=== PATIENT | female | born 1980 | race African-American/Black ===

== ENCOUNTER 2021-07-21 03:22 | Emergency (ER) | payer OTHER, MEDICAID, SELFPAY ==
[2021-07-21 03:39] VITALS: BP 158/78; PULSE 99; RESP 17; TEMP 36.6; O2SAT 98; BMI 31.0
--- NOTE | 2021-07-21 03:46 | DI.RAD.S_ITS ---
PROCEDURE: XR CHEST 2V INDICATIONS: Short of breath, chest pain TECHNIQUE: 2 views of the chest were acquired. COMPARISON: None. FINDINGS: Surgical changes and devices: None. Lungs and pleura: An incomplete inspiratory result is noted, causing a crowded appearance to the lung markings. No pneumothorax or significant pleural effusions are seen. Within the right lung base, poorly defined opacity can be seen on the frontal view. Mediastinum: Mediastinal contours are normal. Heart size is normal. Bones and chest wall: No suspicious bony abnormalities. Soft tissues appear unremarkable. IMPRESSION: There is a mild amount of opacity seen within the right lung base, which may represent early infiltrate. Differential diagnosis includes atelectasis or artifact in this patient with an incomplete inspiratory result. If clinically appropriate, a short-term followup chest series (with PA and lateral views) performed in deep inspiration is suggested for further evaluation. Note: No significant discrepancy from the preliminary report. Dictated by: Nigel Dykes M.D. on 07/21/2021 at 7:02 Approved by: Nigel Dykes M.D. on 07/21/2021 at 7:04
--- NOTE | 2021-07-21 03:49 | ED.CHESTPAIN ---
HPI - Chest Pain General Chief Complaint: Chest Pain Stated Complaint: SOB Time Seen by Provider: 07/21/21 03:26 Source: patient Mode of arrival: Ambulatory Limitations: no limitations History of Present Illness HPI narrative: 41F nonsmoker presents with 2 or 3 days of a sharp and stabbing mid chest pain that seems to be worse when she coughs. She has had some nasal congestion and fullness in her bilateral ears. She denies fever or chills. She has had no nausea or vomiting. She denies any diarrhea or constipation. She has no dysuria, frequency or urgency. She denies vaginal bleeding or discharge but does complain an odd odor. She is very seldom sexually active. Other than deep breath or cough she denies other obvious provocation, palliation or radiation of her chest pain. She denies any exertional component. She is not dizzy nor weak or lightheaded. She denies any recent long distance travel, injury, history of blood clot or cancer nor lower extremity pain or swelling Related Data Previous Rx's Medication Instructions Recorded amoxicillin 875 mg-potassium 1 tab PO Q12H #20 tab 07/21/21 clavulanate 125 mg tablet potassium chloride 20 mEq 20 meq PO BID #10 tab 07/21/21 tablet,extended release Review of Systems Review of Systems Narrative: GENERAL: See HPI HEENT: D see HPI RESPIRATORY see HPI CARDIOVASCULAR: See HPI GASTROINTESTINAL: Denies nausea, vomiting, abdominal pain, diarrhea, constipation, melena. : See HPI MUSCULOSKELETAL: denies weakness, joint pain, or bony pain SKIN: Denies rash, skin lesions, or other NEUROLOGIC: Denies weakness, headache, numbness, change in speech, confusion, seizures, incoordination. PSYCHIATRIC: No concerning psychosocial issues. 12 point review of systems is negative except for those stated above Patient History Social History Smoking Status: Current every day smoker Smoking Status: Current every day smoker Substance Use Type: other Exam Narrative Exam Narrative: GENERAL: [41] year old patient appears stated age. Well-developed patient, in mild distress. HEAD: Atraumatic. Normocephalic. EYES: Pupils equal round and reactive. Extraocular motions intact. No scleral icterus. No injection or drainage. ENT: Nose without bleeding, purulent drainage. Throat without erythema, tonsillar hypertrophy or exudate. Airway patent. NECK: Trachea midline. Non tender CARDIOVASCULAR: Regular rate and rhythm without murmurs, gallops, or rubs. RESPIRATORY: Clear to auscultation. Breath sounds equal bilaterally. No wheezes, rales, or rhonchi. GASTROINTESTINAL: Abdomen soft, non-tender, nondistended. EXTREMITIES: No edema or joint tenderness. BACK: Nontender without deformity or crepitance. No flank tenderness. NEURO: AOx3. SKIN: No rash or erythema of visible areas Initial Vital Signs Initial Vital Signs: Vital Signs Temperature 97.8 F 07/21/21 03:39 Pulse Rate 99 H 07/21/21 03:39 Respiratory Rate 17 07/21/21 03:39 Blood Pressure 158/78 H 07/21/21 03:39 Pulse Oximetry 98 07/21/21 03:39 Course Orders Ordered: ED Orders 07/21/21 03:46 Chest [XR chest 2V] Stat 07/21/21 03:50 C-Reactive Protein Quant Stat Complete Blood Count AUTO DIFF Stat Comprehensive Metabolic Panel Stat D Dimer Stat Erythrocyte Sedimentation Rate Stat Lipase Stat Magnesium Stat NT-proBNP (BNP-Adult 18+) Stat Procalcitonin Stat Troponin & CK Cardiac Panel Stat 07/21/21 04:30 GC Screen Stat 07/21/21 04:50 COVID19 -Nasal RAPID/Pre-Proc Stat Discontinued Medications Sodium Chloride (Normal Saline 0.9%) 500 mls @ 1,000 mls/hr IV BOLUS ONE Stop: 07/21/21 04:12 Last Infusion: 07/21/21 05:13 Dose: 0 mls/hr Documented by: Admin: 07/21/21 04:11 Dose: 1,000 mls/hr Documented by: VANESA Ketorolac Tromethamine (Ketorolac 30 Mg/Ml Vial) 15 mg IV NOW ONE Stop: 07/21/21 03:44 Last Admin: 07/21/21 04:11 Dose: 15 mg Documented by: VANESA Potassium Chloride (Potassium Chloride 20 Meq/15 Ml Udc) 40 meq PO NOW ONE Stop: 07/21/21 04:26 Last Admin: 07/21/21 04:37 Dose: 40 meq Documented by: VANESA Potassium Chloride (Potassium Chloride 20 Meq Tab) 40 meq PO NOW ONE Stop: 07/21/21 04:26 Last Admin: 07/21/21 04:37 Dose: 40 meq Documented by: VANESA Vital Signs Vital signs: Vital Signs - 8 hr 07/21/21 03:39 07/21/21 04:53 07/21/21 04:55 Temperature 97.8 F Pulse Rate 99 H 92 H 88 Respiratory Rate 17 18 13 Blood Pressure 158/78 H 167/74 H Pulse Oximetry 98 07/21/21 05:00 07/21/21 05:20 Temperature Pulse Rate 102 H 85 Respiratory Rate 23 Blood Pressure Pulse Oximetry MDM - Chest Pain Lab Data Result diagrams: 07/21/21 03:50 07/21/21 03:50 Labs: Lab Results 07/21/21 07/21/21 07/21/21 Range/Units 03:50 03:50 03:50 WBC 5.7 (4.5-11.0) X10^3/uL RBC 4.09 (4.0-5.2) X10^6/uL Hgb 8.6 L (12.0-16.0) g/dL Hct 27.7 L (36-46) % MCV 67.8 L (80-100) fL MCH 20.9 L (26-34) PG MCHC 30.8 (30-36) % RDW 18.9 H (11.6-14.8) % Plt Count 340 (150-400) X10^3/uL Neut % (Auto) 46.9 L (50-75) % Lymph % (Auto) 44.4 H (25-40) % [place] % (Auto) 7.0 (3-14) % Eos % (Auto) 1.3 L (2-4) % Baso % (Auto) 0.4 (0-2) % Neut # (Auto) 2700 (8432-9034) /uL Lymph # (Auto) 2500 (1372-5898) /uL [place] # (Auto) 400 (0-900) /uL Eos # (Auto) 100 (0-450) /uL Baso # (Auto) 0 (0-100) /uL RBC Morphology See below Hypochromasia 1+ H Anisocytosis 2+ H ESR 34 H (0-20) MM/HR D-Dimer (<230) ng/mL Sodium 140 (137-145) mmol/L Potassium 2.9 L (3.4-5.1) mmol/L Chloride 105 (98-107) mmol/L Carbon Dioxide 28 (22-32) mmol/L BUN 10 (7-17) mg/dL Creatinine 0.83 (0.52-1.04) mg/dL Estimated GFR > 60 (>60) mL/min BUN/Creatinine Ratio 12.0 (6-22) Glucose 171 H (70-100) mg/dL Calcium 8.5 (8.4-10.2) mg/dL Magnesium 1.8 (1.6-2.3) mg/dL Total Bilirubin 0.2 (0.2-1.3) mg/dL AST 21 (14-36) IU/L ALT 15 (<35) IU/L Alkaline Phosphatase 94 (38-126) U/L Total Creatine Kinase 146 H (30-135) U/L CK-MB (CK-2) 1.05 (<2.37) ng/mL CK-MB (CK-2) Rel Index 0.7 L (1.5-5.0) % Troponin I 0.012 (0.01-0.034) ng/mL C-Reactive Protein < 0.5 (<1.0) mg/dL NT-Pro-B Natriuret Pep 277 H (<125) pg/mL Total Protein 7.6 (6.3-8.2) g/dL Albumin 4.1 (3.5-5.0) g/dL Globulin 3.5 (1.7-4.1) g/dL Albumin/Globulin Ratio 1.2 (1.0-2.8) Lipase 319 H (23-300) U/L Procalcitonin (<0.5) ng/mL SARS-CoV-2 (PCR) (Negative) 07/21/21 07/21/21 07/21/21 Range/Units 03:50 03:50 04:50 WBC (4.5-11.0) X10^3/uL RBC (4.0-5.2) X10^6/uL Hgb (12.0-16.0) g/dL Hct (36-46) % MCV (80-100) fL MCH (26-34) PG MCHC (30-36) % RDW (11.6-14.8) % Plt Count (150-400) X10^3/uL Neut % (Auto) (50-75) % Lymph % (Auto) (25-40) % [place] % (Auto) (3-14) % Eos % (Auto) (2-4) % Baso % (Auto) (0-2) % Neut # (Auto) (1788-3437) /uL Lymph # (Auto) (9050-4879) /uL [place] # (Auto) (0-900) /uL Eos # (Auto) (0-450) /uL Baso # (Auto) (0-100) /uL RBC Morphology Hypochromasia Anisocytosis ESR (0-20) MM/HR D-Dimer < 200 (<230) ng/mL Sodium (137-145) mmol/L Potassium (3.4-5.1) mmol/L Chloride (98-107) mmol/L Carbon Dioxide (22-32) mmol/L BUN (7-17) mg/dL Creatinine (0.52-1.04) mg/dL Estimated GFR (>60) mL/min BUN/Creatinine Ratio (6-22) Glucose (70-100) mg/dL Calcium (8.4-10.2) mg/dL Magnesium (1.6-2.3) mg/dL Total Bilirubin (0.2-1.3) mg/dL AST (14-36) IU/L ALT (<35) IU/L Alkaline Phosphatase (38-126) U/L Total Creatine Kinase (30-135) U/L CK-MB (CK-2) (<2.37) ng/mL CK-MB (CK-2) Rel Index (1.5-5.0) % Troponin I (0.01-0.034) ng/mL C-Reactive Protein (<1.0) mg/dL NT-Pro-B Natriuret Pep (<125) pg/mL Total Protein (6.3-8.2) g/dL Albumin (3.5-5.0) g/dL Globulin (1.7-4.1) g/dL Albumin/Globulin Ratio (1.0-2.8) Lipase (23-300) U/L Procalcitonin 0.03 (<0.5) ng/mL SARS-CoV-2 (PCR) Negative (Negative) Point of Care Testing Test Results Negative Urine Dip Bedside Urine Glucose Negative Bedside Urine Bilirubin - Negative Bedside Urine Ketone - Negative Urine Specific Marks 1.030 Bedside Urine Occult Blood +/- Bedside Urine pH 5.5 Bedside Urine Protein - Negative Bedside Urine Urobilinogen - Negative Bedside Urine Nitrite - Negative Bedside Urine Leukocytes - Negative Esterase Imaging Data Chest x-ray: Radiologist's Impression: Small ill-defined opacity in right base may be pneumonia MDM Narrative Medical decision making narrative: Multiple causes of chest pain considered including [place], PE, pneumothorax, pneumonia, aortic dissection, and pleurisy. Patient reports no radiation, no diaphoresis, no provocation with exertion, and no vomiting Patient's symptoms improved over duration of stay with above-stated therapies. Findings and discharge diagnosis discussed with patient/family followed by verbalization of understanding Return precautions discussed with patient/family whom verbalize understanding. Discharge Plan Departure Patient Disposition: Home Clinical Impression: Atypical chest pain, Pneumonia, Acute hypokalemia Instructions: DI for Pneumonia -- Adult, DI for Atypical Chest Pain Activity Restrictions/Additional Instructions: *You have been diagnosed with [mild pneumonia and atypical chest pain along with low potassium. As we discussed your other labs are very reassuring. There is no evidence of heart attack, blood clot or collapsed lung. Her chest x-ray suggests a small pneumonia. *What to do: *Please continue to take your regular medications as directed. [x ] New medication prescriptions sent to your pharmacy: [ [facility]] [ ] New medication written as a paper prescription [ ] No new medications given *Please follow up with your primary care provider in 2-3 days, call for an appointment. Let them know you were seen in the Emergency Department and that we ask that you be seen in follow up. We will electronically transmit a record of today's note if your PCP is in our system *If you do not have a primary care provider please contact the [facility] Resource line at [phone]. They will ask some questions about your medical history and help get you set up with a doctor in the community. *Return to Emergency Department if you should have any new, worsening or concerning symptoms, such as [fever greater than 101 F, shaking chills, worsening pain, persistent vomiting or other bothersome symptoms] Prescriptions: New amoxicillin-pot clavulanate 875-125 mg tablet 1 tab PO Q12H Qty: 20 0RF potassium chloride 20 mEq tablet extended release 20 meq PO BID Qty: 10 0RF
[2021-07-21 04:02] LABS: Add Manual Diff / Slide Review NO; Basophils Absolute Auto 0 /uL (0-100); Basophils Percent Auto 0.4 % (0-2); Eosinophils Absolute Auto 100 /uL (0-450); Eosinophils Percent Auto 1.3 % (2-4); Hematocrit 27.7 % (36-46); Hemoglobin 8.6 g/dL (12.0-16.0); Lymphocytes Absolute Auto 2500 /uL (1100-4500); Lymphocytes Percent Auto 44.4 % (25-40); Mean Corpuscular HGB Conc 30.8 % (30-36); Mean Corpuscular Hemoglobin 20.9 PG (26-34); Mean Corpuscular Volume 67.8 fL (80-100); Monocytes Absolute Auto 400 /uL (0-900); Neutrophils Absolute Auto 2700 /uL (1500-7000); Neutrophils Percent Auto 46.9 % (50-75); Platelet Count 340 X10^3/uL (150-400); Red Blood Cell Count 4.09 X10^6/uL (4.0-5.2); Red Cell Distribution Width 18.9 % (11.6-14.8); White Blood Cell Count 5.7 X10^3/uL (4.5-11.0)
[2021-07-21] MEDS: SODIUM CHLORIDE 0.9% 500 ML 1000 ML IV (04:11)
[2021-07-21] MEDS: KETOROLAC 30 MG/ML VIAL 15 MG IV (04:11)
[2021-07-21 04:14] LABS: Alanine Aminotransferase 15 IU/L (<35); Albumin 4.1 g/dL (3.5-5.0); Albumin Globulin Ratio 1.2 (1.0-2.8); Alkaline Phosphatase 94 U/L (38-126); Aspartate Aminotransferase 21 IU/L (14-36); Bilirubin Total 0.2 mg/dL (0.2-1.3); Blood Urea Nitrogen 10 mg/dL (7-17); Calcium 8.5 mg/dL (8.4-10.2); Carbon Dioxide 28 mmol/L (22-32); Chloride 105 mmol/L (98-107); Creatine Kinase 146 U/L (30-135); Estimated Glomerular Filt Rate > 60 mL/min (>60); Globulin 3.5 g/dL (1.7-4.1); Glucose 171 mg/dL (70-100); HEMOLYSIS < 15 (0-50); Lipase 319 U/L (23-300); Magnesium 1.8 mg/dL (1.6-2.3); Potassium 2.9 mmol/L (3.4-5.1); Sodium 140 mmol/L (137-145); Total Protein 7.6 g/dL (6.3-8.2)
[2021-07-21 04:18] LABS: C-Reactive Protein Quant < 0.5 mg/dL (<1.0)
[2021-07-21 04:22] LABS: Anisocytosis 2+; Erythrocyte Sedimentation Rate 34 MM/HR (0-20); Hypochromasia 1+
[2021-07-21 04:26] LABS: NT-proBNP (BNP-Adult 18+) 277 pg/mL (<125); Troponin I 0.012 ng/mL (0.01-0.034)
[2021-07-21 04:29] LABS: CKMB % Relative Index 0.7 % (1.5-5.0); Creatine Kinase MB 1.05 ng/mL (<2.37)
[2021-07-21 04:32] LABS: Procalcitonin 0.03 ng/mL (<0.5)
[2021-07-21] MEDS: POTASSIUM CHLORIDE 20 MEQ/15 ML UDC 40 MEQ PO (04:37)
[2021-07-21] MEDS: POTASSIUM CHLORIDE 20 MEQ TAB 40 MEQ PO (04:37)
[2021-07-21 04:53] VITALS: PULSE 92; RESP 18
[2021-07-21 04:53] LABS: D Dimer < 200 ng/mL (<230)
[2021-07-21 04:55] VITALS: BP 167/74; PULSE 88; RESP 13
[2021-07-21 05:00] VITALS: PULSE 102; RESP 23
[2021-07-21 05:12] LABS: COVID19 -Nasal RAPID Negative (Negative)
[2021-07-21 05:20] VITALS: PULSE 85
== END 2021-07-21 05:39 | disposition home or self-care (01) ==
PROVIDERS: Emergency Provider Emergency Medicine
DX: R07.89 Other chest pain (principal); J18.9 Pneumonia, unspecified organism; E87.6 Hypokalemia; Z20.822 Contact with and (suspected) exposure to COVID-19; F17.200 Nicotine dependence, unspecified, uncomplicated
CPT/HCPCS: 71046; 80053; 81003; 81025; 82550; 82553; 83690; 83735; 83880; 84145; 84484; 85025; 85379; 85651; 86140; 87081; 87635; 93005; 96374; 99284; C9803; J1885